=== PATIENT | female | born 1970 | race Caucasian/White ===

== ENCOUNTER 2016-12-14 20:12 | Inpatient (IN) | payer MEDICAID ==
[~2016-12-14] VITALS: Ht 142.2 cm; Wt 51.7 kg
[2016-12-14 20:16] VITALS: BP 119/76
[2016-12-14] MEDS ORDERED: NACL 0.9% 1,000 ML IV ONE ×2 (21:41→22:40)
--- NOTE | 2016-12-14 21:44 | NUR ---
PT TAKEN TO CT
[2016-12-14] MEDS ORDERED: ONDANSETRON 4 MG/2 ML VIAL IVP ONE (21:45)
[2016-12-14] MEDS ORDERED: MORPHINE SULFATE 4 MG/ML SYR IVP ONE (21:45)
--- NOTE | 2016-12-14 22:04 | NUR ---
PT TAKEN TO BED 3
--- NOTE | 2016-12-14 22:05 | NUR ---
46/F BIB FAMILY C/O ABD PAIN x TODAY 1000. PT HAS N/V x 4, DENIES DIARRHEA. PAIN 10/10 RLQ. LAST PO INTAKE 1500. HX: RT SIDE OVARY SURGERY 20 PLUS YEARS AGO MEDS: NONE
--- NOTE | 2016-12-14 22:23 | NUR ---
Dr. Middleton evaluating patient at bedside.
[2016-12-14 22:35] LABS: BASOPHILS # (AUTO) 0.6 K/uL (0.00-0.22); BASOPHILS % (AUTO) 4.5 % (0.0-2.0); EOSINOPHILS # (AUTO) 0.1 K/uL (0-0.4); EOSINOPHILS % (AUTO) 0.8 % (0.0-4.0); HEMATOCRIT 42.1 % (36-48); HEMOGLOBIN 14.1 g/dL (12.0-16.0); LYMPHOCYTES # (AUTO) 1.4 K/uL (2.5-16.5); LYMPHOCYTES % (AUTO) 10.8 % (20.5-51.1); MEAN CORPUSCULAR HEMOGLOBIN 31 pg (27-31); MEAN CORPUSCULAR HGB CONC 34 g/dL (33-37); MEAN CORPUSCULAR VOLUME 93 fL (80-94); MONOCYTES # (AUTO) 0.4 K/uL (0.8-1.0); MONOCYTES % (AUTO) 3.3 % (1.7-9.3); NEUTROPHILS # (AUTO) 10.6 K/uL (1.8-7.7); NEUTROPHILS % (AUTO) 80.6 % (42.2-75.2); PLATELET COUNT (AUTO) 246 K/uL (140-450); RED BLOOD CELL COUNT(AUTO) 4.55 MIL/uL (4.20-5.40); RED CELL DISTRIBUTION WIDTH 12.2 % (11.6-13.7); WHITE BLOOD COUNT (AUTO) 13.1 K/uL (4.8-10.8)
[2016-12-14] MEDS ORDERED: PIPERACILLIN/TAZOBACTAM 3.375 GM in DEXTROSE 5% 50 ML IV ONE (22:40)
[2016-12-14] MEDS ORDERED: metroNIDAZOLE 500 MG/NS PREMIX 100 ML IV ONE (22:40)
--- NOTE | 2016-12-14 22:40 | NUR ---
LAST TIME PT ATE ANY FOOD WAS 15:00 TODAY, SMALL BITE OF BANANA AND GROUND BEEF. SMALL CUP OF WATER AT 18:00 TONIGHT.
[2016-12-14] MEDS ORDERED: ONDANSETRON 4 MG/2 ML VIAL IVP PRN (22:50)
[2016-12-14] MEDS ORDERED: LORazepam 2 MG/ML VIAL IVP PRN (22:50)
[2016-12-14 22:52] LABS: ALBUMIN 3.7 g/dL (3.4-5.0); ANION GAP 14.7 (8-16); CALCIUM 9.1 mg/dL (8.5-10.1); CARBON DIOXIDE 26.8 mmol/L (21-32); CREATININE 0.8 mg/dL (0.6-1.3); POTASSIUM 4.5 mmol/L (3.5-5.1); TOTAL BILIRUBIN 0.5 mg/dL (0.0-1.0); TOTAL PROTEIN, SERUM 8.4 g/dL (6.4-8.2)
[2016-12-14] MEDS ORDERED: PIPERACILLIN/TAZOBACTAM 3.375 GM VIAL IV ONE (22:54)
[2016-12-14 23:23] LABS: APPEARANCE,URINE SL CLOUDY (CLEAR); BILIRUBIN,URINE NEGATIVE (NEGATIVE); BLOOD, URINE NEGATIVE (NEGATIVE); COLOR,URINE YELLOW (YELLOW); LEUKOCYTE ESTERASE ,URINE NEGATIVE (NEGATIVE); NITRITE, URINE NEGATIVE (NEGATIVE); PROTEIN,URINE NEGATIVE (NEGATIVE); UGLUCOSE NEGATIVE (NEGATIVE); UROBILINOGEN,URINE 0.2 EU/dL (0.2 - 1)
[2016-12-14 23:33] LABS: BACTERIA,URINE FEW /HPF (None Seen); RBC,URINE 0-5 (RARE) /HPF (0-5); SQUAMOUS EPITHELIAL CELL,UR 0-3 (FEW) /LPF (0-3 (FEW)); WBC,URINE 0-5 (RARE) /HPF (0-5)
--- NOTE | 2016-12-15 | NUR ---
Patient will be admitted to care of [facility]. Admited to Med/Surg. Will go to room 126B. Belongings list completed. Report to
[2016-12-15 00:30] VITALS: BP 109/69
--- NOTE | 2016-12-15 00:30 | NUR ---
RECEIVED REPORT FROM ED RN FOR CONTINUITY OF CARE. PATIENT IS A&OX4, TAMAZIGHT SPEAKING, ORIENTED PATIENT TO ROOM AND DISCUSSED PLAN OF CARE WITH PATIENT, VERBALIZED UNDERSTANDING. SHIFT ASSESSMENT DONE, VS TAKEN, STABLE. NO S/S OF RESPIRATORY DISTRESS NOTED ON ROOM AIR. PATIENT STATES ABDOMINAL PAIN, WILL MEDICATE PER MD ORDER. SKIN INTACT. MRSA SWAB COLLECTED. SAFETY PRECAUTIONS ENFORCED, CALL LIGHT WITHIN REACH. FAMILY MEMBER AT BEDSIDE, WILL CONTINUE TO MONITOR.
[2016-12-15] MEDS: MORPHINE SULFATE 2 MG/ML SYR IVP PRN (00:46)
[2016-12-15] MEDS: DEXT 5% /NACL 0.9% 1,000 ML IV SCH ×3 (00:46→21:28)
--- NOTE | 2016-12-15 00:46 | NUR ---
PATIENT C/O ABDOMINAL PAIN, MEDICATED PER MD ORDER. VITAL SIGNS STABLE. CALL LIGHT WITHIN REACH.
--- NOTE | 2016-12-15 02:32 | NUR ---
PATIENT RESTING IN BED AT THIS TIME. CALL LIGHT WITHIN REACH. IV PATENT AND INFUSING WELL. WILL CONTINUE TO MONITOR.
[2016-12-15 04:00] VITALS: BP 100/66
--- NOTE | 2016-12-15 04:04 | NUR ---
VITAL SIGNS STABLE, PATIENT DENIES PAIN, C/O NAUSEA WILL MEDICATE PER MD ORDER.
[2016-12-15] MEDS: MORPHINE SULFATE 4 MG/ML SYR IVP PRN ×4 (05:56→21:54)
--- NOTE | 2016-12-15 05:56 | NUR ---
PT C/O SEVERE ABDOMINAL PAIN, MEDICATED PER MD ORDER. VITAL SIGNS STABLE, WILL CONTINUE TO MONITOR.
[2016-12-15 06:44] LABS: BASOPHILS # (AUTO) 0.2 K/uL (0.00-0.22); BASOPHILS % (AUTO) 1.3 % (0.0-2.0); EOSINOPHILS # (AUTO) 0.1 K/uL (0-0.4); EOSINOPHILS % (AUTO) 0.9 % (0.0-4.0); HEMATOCRIT 36.2 % (36-48); HEMOGLOBIN 12.4 g/dL (12.0-16.0); LYMPHOCYTES # (AUTO) 1.4 K/uL (2.5-16.5); LYMPHOCYTES % (AUTO) 11.2 % (20.5-51.1); MEAN CORPUSCULAR HEMOGLOBIN 32 pg (27-31); MEAN CORPUSCULAR HGB CONC 34 g/dL (33-37); MEAN CORPUSCULAR VOLUME 93 fL (80-94); NEUTROPHILS # (AUTO) 9.6 K/uL (1.8-7.7); NEUTROPHILS % (AUTO) 78.6 % (42.2-75.2); PLATELET COUNT (AUTO) 212 K/uL (140-450); RED BLOOD CELL COUNT(AUTO) 3.91 MIL/uL (4.20-5.40); RED CELL DISTRIBUTION WIDTH 12.3 % (11.6-13.7)
[2016-12-15 07:05] LABS: ANION GAP 11.5 (8-16); CALCIUM 7.9 mg/dL (8.5-10.1); CARBON DIOXIDE 24.9 mmol/L (21-32); CREATININE 0.7 mg/dL (0.6-1.3); POTASSIUM 3.4 mmol/L (3.5-5.1)
--- NOTE | 2016-12-15 07:23 | NUR ---
ENDORSED PATIENT TO DAY RN FOR CONTINUITY OF CARE, PATIENT IS IN STABLE CONDITION.
--- NOTE | 2016-12-15 07:30 | NUR ---
RECEIVED PATIENT REPORT AT BEDSIDE. PATIENT AWAKE, ALERT ORIENTED AND AMBULATORY. PATIENT REPORTS OF ABD PAIN. PATIENT WAS MEDICATED. WILL REASSESS. IV LINE NOTED TO THE LEFT FOREARM WITH IVF INFUSING WELL. BED LOWERED WITH CALL LIGHT WITHIN REACH. WILL CONTINUE TO MONITOR
[2016-12-15 08:00] VITALS: BP 97/66
[2016-12-15 08:12] LABS: WHITE BLOOD COUNT (AUTO) 12.3 K/uL (4.8-10.8)
--- NOTE | 2016-12-15 08:48 | NUR ---
SPOKE TO DR SAMS AND INFORMED HIM ABOUT THE CONSULT ORDER FOR THE PATIENT
--- NOTE | 2016-12-15 09:14 | NUR ---
PATIENT HAS BEEN SCREENED AND CATEGORIZED MODERATE NUTRITION RISK. PATIENT WILL BE SEEN WITHIN 3-5 DAYS OF ADMISSION. 12/17/16-12/19/[address]
[2016-12-15 10:24] VITALS: BP 104/55
--- NOTE | 2016-12-15 11:25 | NUR ---
PATIENT SEEN BY DR JAMES
--- NOTE | 2016-12-15 11:30 | NUR ---
CONSENT FOR LAPAROSCOPIC/ POSSIBLE OPEN APPENDECTOMY OBTAINED FROM THE PATIENT. CONSENT FILED IN THE CHART
[2016-12-15 11:59] LABS: PARTIAL THROMBOPLASTIN TIME 28.1 secs (22-35.6); PROTHROMBIN TIME 9.9 secs (10.8-13.4)
[2016-12-15 16:00] VITALS: BP 96/55
[2016-12-15] MEDS ORDERED: SEVOFLURANE 250 ML BTL INH ONE (17:30)
[2016-12-15] MEDS ORDERED: DEXAMETHASONE 4 MG/ML VIAL IVP ONE (17:30)
[2016-12-15] MEDS ORDERED: NEOSTIGMINE 1:1000 10 MG/10 ML VIAL IM ONE (17:30)
[2016-12-15] MEDS ORDERED: ONDANSETRON 4 MG/2 ML VIAL IVP ONE (17:30)
[2016-12-15] MEDS ORDERED: ROCURONIUM 50 MG/5 ML VIAL IV ONE (17:30)
[2016-12-15] MEDS ORDERED: SUCCINYLCHOLINE CHLORIDE 200 MG/10 ML VIAL IV ONE (17:30)
[2016-12-15] MEDS ORDERED: PROPOFOL 200 MG/20 ML VIAL IV ONE (17:30)
[2016-12-15] MEDS ORDERED: GLYCOPYRROLATE 0.2 MG/ML VIAL IV ONE (17:30)
[2016-12-15] MEDS ORDERED: KETOROLAC 60 MG/2 ML VIAL IM ONE (17:30)
--- NOTE | 2016-12-15 18:08 | NUR ---
PATIENT LEFT THE UNIT FOR SURGERY
[2016-12-15] MEDS ORDERED: fentaNYL 0.05 MG/ML VIAL ONE (18:23)
[2016-12-15] MEDS ORDERED: MIDAZOLAM 2 MG/2 ML VIAL ONE (18:23)
[2016-12-15] MEDS ORDERED: MORPHINE SULFATE 4 MG/ML SYR ONE (18:24)
[2016-12-15] MEDS ORDERED: MORPHINE SULFATE 4 MG/ML SYR IVP PRN ×2 (19:20)
[2016-12-15] MEDS ORDERED: MORPHINE SULFATE 2 MG/ML SYR IVP PRN (19:20)
[2016-12-15] MEDS ORDERED: MIDAZOLAM 2 MG/2 ML VIAL IV SCH (19:20)
[2016-12-15] MEDS ORDERED: METOCLOPRAMIDE 10 MG/2 ML INJ VIAL IVP PRN (19:20)
--- NOTE | 2016-12-15 19:20 | NUR ---
PATIENT REPORT GIVEN TO THE NIGHT NURSE. PATIENT CURRENTLY OFF THE UNIT FOR SURGERY
--- NOTE | 2016-12-15 19:21 | NUR ---
RECEIVED REPORT FROM DAY RN FOR CONTINUITY OF CARE, PATIENT IS OFF THE UNIT FOR SURGERY.
[2016-12-15] MEDS ORDERED: HYDROcodone/APAP 5/325 MG 1 TAB TAB PO PRN (19:50)
[2016-12-15 20:35] VITALS: BP 106/63
--- NOTE | 2016-12-15 20:35 | NUR ---
PATIENT RETURNED FROM SURGERY IN STABLE CONDITION. PATIENT IS A&OX4, RE-ORIENTED PATIENT TO ROOM AND PLAN OF CARE. SHIFT ASSESSMENT DONE, VS TAKEN. 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 PATIENT O2 SAT AT 87% ON ROOM AIR, PLACED ON 2L NC, NOW UP TO 96%. SAFETY PRECAUTIONS ENFORCED, CALL LIGHT WITHIN REACH. WILL CONTINUE TO MONITOR. ATTEMPTED TO REACH FAMILY MEMBERS BUT NO ANSWER, INFORMED PATIENT.
[2016-12-15] MEDS: BUPIVACAINE-MPF/EPI 0.25% 30 ML VIAL INJ ONE ×2 (21:28→22:36)
--- NOTE | 2016-12-15 21:54 | NUR ---
IV TO LEFT AC LEAKING, REMOVED WITH CANNULA INTACT. NEW IV LINE INSERTION TO RIGHT WRIST 22 GAUGE PATENT. ADMINISTERED PAIN MEDICATIONS AND RESUMED IV FLUIDS PER MD ORDER. WILL CONTINUE TO MONITOR.
--- NOTE | 2016-12-15 23:15 | NUR ---
PATIENT AMBULATED TO RESTROOM WITH ASSIST, VOIDED CLEAR YELLOW URINE. RETURNED TO BED AND MADE COMFORTABLE. CALL LIGHT WITHIN REACH.
[2016-12-16] VITALS: BP 99/56
--- NOTE | 2016-12-16 00:33 | NUR ---
PT C/O ABDOMINAL PAIN, VITAL SIGNS STABLE. WILL MEDICATE PER MD ORDER.
[2016-12-16] MEDS: MORPHINE SULFATE 2 MG/ML SYR IVP PRN (00:36)
--- NOTE | 2016-12-16 02:15 | NUR ---
PATIENT SLEEPING AT THIS TIME, NO S/S OF DISTRESS OR DISCOMFORT NOTED. CALL LIGHT WITHIN REACH.
--- NOTE | 2016-12-16 03:56 | NUR ---
VITAL SIGNS STABLE, PATIENT STATES TOLERABLE PAIN, REFUSED PAIN MEDS AT THIS TIME. OFFERED PATIENT FOOD, STATES SHE DOES NOT WANT ANY RIGHT NOW. WILL CONTINUE TO MONITOR.
[2016-12-16] MEDS: DEXT 5% /NACL 0.9% 1,000 ML IV SCH ×2 (04:50→14:50)
--- NOTE | 2016-12-16 06:00 | NUR ---
PATIENT AWAKE RESTING IN BED ON THE PHONE, NO S/S OF DISTRESS OR DISCOMFORT NOTED. CALL LIGHT WITHIN REACH.
[2016-12-16 06:57] LABS: ANION GAP 14.4 (8-16); CALCIUM 8.2 mg/dL (8.5-10.1); CARBON DIOXIDE 24.3 mmol/L (21-32); CREATININE 0.8 mg/dL (0.6-1.3); POTASSIUM 3.7 mmol/L (3.5-5.1)
[2016-12-16 07:05] LABS: HEMATOCRIT 35.9 % (36-48); HEMOGLOBIN 12.2 g/dL (12.0-16.0); MEAN CORPUSCULAR HEMOGLOBIN 32 pg (27-31); MEAN CORPUSCULAR HGB CONC 34 g/dL (33-37); MEAN CORPUSCULAR VOLUME 94 fL (80-94); PLATELET COUNT (AUTO) 208 K/uL (140-450); RED BLOOD CELL COUNT(AUTO) 3.81 MIL/uL (4.20-5.40); RED CELL DISTRIBUTION WIDTH 12.8 % (11.6-13.7); WHITE BLOOD COUNT (AUTO) 10.8 K/uL (4.8-10.8)
--- NOTE | 2016-12-16 07:20 | NUR ---
ENDORSED PATIENT TO DAY RN FOR CONTINUITY OF CARE, PATIENT IS IN STABLE CONDITION.
--- NOTE | 2016-12-16 07:20 | NUR ---
RECEIVED PATIENT REPORT AT BEDSIDE. PATIENT AWAKE, ALERT, ORIENTED AND AMBULATORY. NO S/S OF DISTRESS NOTED. PATIENT REPORTS OF 6/10 ABD PAIN. WILL MEDICATED. 3 LAPAROSCOPIC INCISIONS NOTED. TO THE ABD. INCISIONS CLEAN DRY AND INTACT. IV LINE NOTED TO THE RIGHT FOREARM WITH IVF INFUSING WELL. BED LOWERED WITH CALL LIGHT WITHIN. WILL CONTINUE TO MONITOR
[2016-12-16 08:00] VITALS: BP 95/68
[2016-12-16 08:33] LABS: BAND % (MANUAL) 3 % (0-8); LYMPHOCYTES % (MANUAL) 9 % (20-46); MONOCYTES % (MANUAL) 2 % (5-12); NEUTROPHILS % (MANUAL) 86 (43-65); PLATELET ESTIMATE ADEQUATE
--- NOTE | 2016-12-16 09:00 | NUR ---
PATIENT AMBULATED TO THE BATHROOM TO VOID. NO S/S OF DISTRESS NOTED
--- NOTE | 2016-12-16 12:30 | NUR ---
PATIENT TOLERATED REGULAR DIET WELL. NO S/S OF DISTRESS NOTED
[2016-12-16] MEDS ORDERED: ACET-2619 PO (13:19)
[2016-12-16] MEDS ORDERED: IBUP-2213 PO (13:19)
--- NOTE | 2016-12-16 15:50 | NUR ---
PATIENT DISCHARGED TO HOME. DISCHARGE INSTRUCTIONS AND DISCHARGE PRESCRIPTIONS GIVEN. PATIENT VERBALIZED UNDERSTANDING. IV LINE DISCONTINUED. PATIENT LEFT WITH ALL HER BELONGINGS AND DISCHARGE PAPERS. PATIENT LEFT IN STABLE CONDITION
== END 2016-12-16 15:50 | disposition home or self-care (01) | DRG 225 ==
LOC: MED 20:12 → MMU 22:59
PROVIDERS: ADMIT Preventive Medicine Preventive Medicine/Occupational Environmental Medicine; ATTEND Preventive Medicine Preventive Medicine/Occupational Environmental Medicine
PROC: 0DTJ4ZZ Resection of Appendix, Percutaneous Endoscopic Approach (ICD-10-PCS; principal; 2016-12-15 18:30)
DX: K35.80 Unspecified acute appendicitis (principal); E83.52 Hypercalcemia; R73.9 Hyperglycemia, unspecified; R74.0 Nonspecific elevation of levels of transaminase and lactic acid dehydrogenase [LDH]; D72.829 Elevated white blood cell count, unspecified
CPT/HCPCS: 36415; 71010; 80048; 80053; 81001; 81025; 83690; 85025; 85610; 85651; 85730; 86140; 86886; 86900; 86901; 87081; 96365; 96375; 99291; J0330; J1100; J1885; J2250; J2270; J2405; J2543; J2704; J2710; J3010; J3490; J7030; J7042; J7060; Q0092